=== PATIENT | female | born 1950 | race African-American/Black ===

== ENCOUNTER 2017-09-09 11:53 | Emergency (ER) | payer SELFPAY ==
[~2017-09-09] VITALS: Ht 162.6 cm; Wt 77.0 kg
[2017-09-09] MEDS ORDERED: IBUPROFEN 600MG TABLET PO STA (13:18)
[2017-09-09 13:20] VITALS: BP 120/80
== END 2017-09-09 15:45 | disposition home or self-care (01) ==
LOC: ER 13:13
DX: S73.102A Unspecified sprain of left hip, initial encounter (principal); X58.XXXA Exposure to other specified factors, initial encounter; Y93.9 Activity, unspecified; E78.00 Pure hypercholesterolemia, unspecified; I10 Essential (primary) hypertension; Z85.3 Personal history of malignant neoplasm of breast
CPT/HCPCS: 73502; 93971; 99284